=== PATIENT | female | born 1980 | race African-American/Black ===

== ENCOUNTER 2018-03-30 15:48 | Emergency (ER) | payer SELFPAY ==
[~2018-03-30] VITALS: Ht 157.5 cm; Wt 86.0 kg
[2018-03-30] MEDS ORDERED: ACETAMINOPHEN 325MG TABLET PO NR (16:15)
[2018-03-30] MEDS ORDERED: KETOROLAC 30MG/ML VIAL IV STA (18:22)
[2018-03-30] MEDS ORDERED: ACETAMINOPHEN 325MG TABLET PO STA (18:22)
[2018-03-30] MEDS ORDERED: SODIUM CHLORIDE 0.9% 1000ML BAG (SEPSIS BOLUS) IV ONE (18:30)
[2018-03-30 18:51] LABS: CLARITY URINE CLEAR (CLEAR); COLOR URINE YELLOW (YELLOW); KETONES URINE 2+ (NEGATIVE); LEUKOCYTE ESTERASE URINE 2+ (NEGATIVE); NITRITE URINE NEGATIVE (NEGATIVE); OCCULT BLOOD URINE 1+ (NEGATIVE); PH URINE 5.5 (4.5-8.0); PROTEIN URINE 2+ (NEGATIVE); SPECIFIC GRAVITY URINE 1.023 (1.005-1.030)
[2018-03-30] MEDS ORDERED: CEFTRIAXONE 1 G PREMIX 50 ML IV ONE (19:45)
[2018-03-30 21:57] LABS: BASOPHILS % 0.2 % (0.0-2.0); EOSINOPHILS % 0.1 % (0.0-5.0); HEMATOCRIT. 33.8 % (36.0-48.0); HEMOGLOBIN. 11.2 g/dL (12.0-16.0); LYMPHOCYTES % 8.6 % (20.0-50.0); MEAN CORPUSCULAR HEMOGLOBIN 28.4 pg (28.0-32.0); MEAN CORPUSCULAR VOLUME 85.4 fL (81.0-99.0); MEAN PLATELET VOLUME 8.6 fl (7.4-10.4); MONOCYTES % 10.9 % (2.0-8.0); NEUTROPHILS % 80.2 % (40.0-76.0); PLATELET 173 x1000/uL (130-400); RED BLOOD CELL COUNT 3.96 mill/uL (4.2-5.4)
[2018-03-30 22:01] LABS: CHLORIDE 109 mEq/L (98-107)
[2018-03-30 22:14] LABS: HCG SCREEN NEGATIVE
[2018-03-30 23:04] VITALS: BP 112/69
== END 2018-03-30 23:07 | disposition home or self-care (01) ==
LOC: ER 15:48
DX: N30.90 Cystitis, unspecified without hematuria (principal); R50.9 Fever, unspecified; R53.83 Other fatigue; R00.0 Tachycardia, unspecified; Z98.890 Other specified postprocedural states
CPT/HCPCS: 36415; 71045; 80053; 81003; 84703; 85025; 87040; 96365; 96366; 96375; 99285; J0696; J1885; J7030